=== PATIENT | female | born 1975 | race Hispanic/Latino ===

== ENCOUNTER 2017-10-20 11:32 | Emergency (ER) | payer BC, SELFPAY ==
[2017-10-20] MEDS ORDERED: ISOVUE-370 76%-LOCM 1 ML ONE (12:13)
[2017-10-20 12:17] LABS: #Eosinphils 0.2 thou/uL (0.0-0.7); #Lymphocytes 2.5 thou/uL (1.20-3.40); #Monocytes 0.3 thou/uL (0.11-0.59); %Basophils 0.7 % (0.0-1.0); %Eosinophils 3.1 % (0.0-10.0); %Lymphocytes 41.9 % (21.0-51.0); %Monocytes 4.8 % (0.0-10.0); %Neutrophils 49.5 % (42.0-75.0); Mean Corpuscular HGB CONC 31.6 g/dL (32.0-36.0); Mean Corpuscular Volume 88.5 fL (78.0-98.0); Mean Platelet Volume 7.4 fL (7.4-10.4); Platelet Count 298 thou/uL (130-400); RBC Distribution Width 12.4 % (11.5-14.5); Red Blood Cell (RBC) Count 5.01 mill/uL (4.20-5.40)
[2017-10-20 12:30] LABS: BHCG - Serum Negative (NEGATIVE); Pregs Control Background? CLEAR/WHITE (CLR/WHITE); Pregs Control Bar Appear? YES (CONTROL BAR)
[2017-10-20 12:31] LABS: ALT (SGPT) 27 U/L (8-55); AST (SGOT) 25 U/L (5-34); Albumin 4.7 g/dL (3.5-5.0); Alkaline Phosphatase 81 U/L (40-150); Anion Gap 9 mmol/L (10-20); BUN (Urea Nitrogen) 14 mg/dL (7.0-18.7); Bilirubin, Total 0.9 mg/dL (0.2-1.2); Calc. Creatinine Clearance 0 mL/min (70-130); Calcium 9.8 mg/dL (7.8-10.44); Carbon Dioxide 30 mmol/L (22-29); Chloride 103 mmol/L (98-107); Estimated GFR-MDRD Greater than 90; Globulin 3.4 g/dL (2.4-3.5); Glucose 96 mg/dL (70-105); Potassium 4.1 mmol/L (3.5-5.1); Protein, Total 8.1 g/dL (6.0-8.3); Sodium 138 mmol/L (136-145)
--- NOTE | 2017-10-20 13:29 | CT ---
POSTCONTRAST SOFT TISSUE NECK CT: HISTORY: Neck pain. Swelling. COMPARISON: None. TECHNIQUE: Post contrast soft tissue neck CT is performed in the axial plane. Sagittal and coronal reformatted images are submitted for interpretation. FINDINGS: Visualized brain parenchyma and orbits are unremarkable. Adequate aeration of the visualized sinuses and mastoid air cells. Aerodigestive tract is patent. No mucosal abnormality. Midline fatty raphae of the tongue is preser declan. There is no prevertebral soft tissue swelling. There is fullness of both palatine tonsils, nonspecific. The adenoid tonsils do not appear to be enl arged. There may be mild lingual tonsillar hypertrophy. Evaluation of the oral cavity is also limit ed by motion degradation. Symmetric attenuation of the parotid and submandibular glands. Appropriate attenuation of thyroid gl and. Symmetric attenuation of sternocleidomastoid muscles. Enlarged right level II lymph node measures 0.8 x 1.2 cm. Enlarged left level II lymph node measurin g 1.1 x 0.9 cm. There is also an enlarged left level II lymph node measuring 1.1 x 0.9 cm. Some of the enlarged lymph nodes have lost their normal fatty hilum. Additional large bilateral level II lym ph nodes are noted. Upper mediastinum and lung apices are unremarkable. There are varying degrees of central canal stenosis and neural foraminal narrowing on the basis of de generative change. Evaluation is limited by technique. Cervical spine vertebral body height is main tained. There is no fracture. IMPRESSION: Lymphoid tissue hypertrophy/adenopathy as detailed above. Findings may be reactive. Neoplastic proc esses, either metastatic or primary cannot be excluded. Correlate clinically. POS: [facility]
== END 2017-10-20 13:31 | disposition home or self-care (01) ==
LOC: ERS 11:32
DX: R59.0 Localized enlarged lymph nodes (principal)
CPT/HCPCS: 70491; 80053; 84703; 85025

== ENCOUNTER 2017-12-17 23:00 | Emergency (ER) | payer SELFPAY ==
[2017-12-17 23:32] LABS: #Basophils 0.1 thou/uL (0.0-0.2); #Eosinphils 0.3 thou/uL (0.0-0.7); #Lymphocytes 3.2 thou/uL (1.20-3.40); #Monocytes 0.6 thou/uL (0.11-0.59); #Neutrophils 11.3 thou/uL (1.40-6.50); %Basophils 0.5 % (0.0-1.0); %Eosinophils 2.1 % (0.0-10.0); %Lymphocytes 20.8 % (21.0-51.0); %Monocytes 3.8 % (0.0-10.0); %Neutrophils 72.8 % (42.0-75.0); Hemoglobin 13.7 g/dL (12.0-16.0); Mean Corpuscular HGB CONC 33.7 g/dL (32.0-36.0); Mean Corpuscular Hemoglobin 30.1 pg (27.0-31.0); Mean Corpuscular Volume 89.2 fL (78.0-98.0); Platelet Count 350 thou/uL (130-400); RBC Distribution Width 12.8 % (11.5-14.5); Red Blood Cell (RBC) Count 4.54 mill/uL (4.20-5.40); White Blood Cell (WBC) Count 15.6 thou/uL (4.8-10.8)
[2017-12-17] MEDS ORDERED: Acetaminophen 500 MG TAB ONE (23:33)
[2017-12-17 23:43] LABS: Bilirubin Negative (Negative); Blood, Urine Negative (Negative); Clarity CLEAR (Clear); Glucose, Urine (Dipstick) Negative (Negative); Leukocyte Negative (Negative); Nitrite Negative (Negative); Protein, Urine (Dipstick) Negative (Neg-Trace); Specific Gravity, Urine 1.011 (1.002-1.036); Urobilinogen 0.2 mg/dL (0.2-1.0); pH, Urine 6.5 (5.0-9.0)
[2017-12-17 23:49] LABS: Pregnancy Test - Urine (BHCG) Negative (Negative); Pregu Control Background? CLEAR/WHITE (CLR/WHITE); Pregu Control Bar Appear? YES (CONTROL BAR); Specific Gravity 1.011 (1.002-1.036)
[2017-12-17 23:53] LABS: ALT (SGPT) 68 U/L (8-55); AST (SGOT) 56 U/L (5-34); Albumin 4.3 g/dL (3.5-5.0); Alkaline Phosphatase 93 U/L (40-150); Anion Gap 15 mmol/L (10-20); BUN (Urea Nitrogen) 12 mg/dL (7.0-18.7); Bilirubin, Total 0.7 mg/dL (0.2-1.2); Calc. Creatinine Clearance 0 mL/min (70-130); Calcium 9.6 mg/dL (7.8-10.44); Carbon Dioxide 22 mmol/L (22-29); Chloride 102 mmol/L (98-107); Estimated GFR-MDRD Greater than 90; Globulin 3.1 g/dL (2.4-3.5); Glucose 112 mg/dL (70-105); Lipase 27 U/L (8-78); Potassium 4.5 mmol/L (3.5-5.1); Protein, Total 7.4 g/dL (6.0-8.3); Sodium 134 mmol/L (136-145)
[2017-12-18] MEDS ORDERED: Ondansetron HCl/PF 4 MG/2 ML Vial ONE (00:15)
--- NOTE | 2017-12-18 09:12 | RAD ---
PORTABLE CHEST: HISTORY: Cough. FINDINGS: Heart size and mediastinum are within normal limits. The lungs are clear of infiltrates. No bony fi ndings. IMPRESSION: No active intrathoracic disease. POS: [facility]
== END 2017-12-18 01:10 | disposition home or self-care (01) ==
LOC: ERS 23:00
DX: J06.9 Acute upper respiratory infection, unspecified (principal)
CPT/HCPCS: 71045; 80053; 81003; 81025; 83605; 83690; 85025; 96374; J2405

== ENCOUNTER 2019-02-22 10:30 | Outpatient (CLI) | payer OTHER ==
--- NOTE | 2019-02-22 12:23 | RAD ---
CHEST 2 VIEWS: Date: 02/22/19 HISTORY: TB screening. COMPARISON: 12/18/17. FINDINGS: Heart size is normal. The lungs are clear. IMPRESSION: No acute intrathoracic disease. Stable from prior study. No evidence for active TB. POS: [facility]
== END 2019-02-22 10:31 | disposition home or self-care (01) ==
LOC: BICRAD 10:30
PROVIDERS: ATTEND Family Medicine
DX: Z11.1 Encounter for screening for respiratory tuberculosis (principal)
CPT/HCPCS: 71046

== ENCOUNTER 2020-04-01 15:48 | Outpatient (CLI) | payer OTHER ==
--- NOTE | 2020-04-01 16:02 | RAD ---
EXAM: Two views chest PROVIDED CLINICAL HISTORY: Positive TB test. COMPARISON: 02/22/2019 FINDINGS: Cardiac silhouette and pulmonary vasculature are within normal limits. The lungs are clear. The osse ous structures have a normal appearance. Surgical clips again overlie the right upper quadrant. IMPRESSION: No acute cardiopulmonary process.
== END 2020-04-01 15:49 | disposition home or self-care (01) ==
LOC: BICRAD 15:48
PROVIDERS: ATTEND Physician Assistant
DX: R76.11 Nonspecific reaction to tuberculin skin test without active tuberculosis (principal)
CPT/HCPCS: 71046

== ENCOUNTER 2021-11-24 01:37 | Emergency (ER) | payer SELFPAY ==
[2021-11-24] MEDS ORDERED: Ibuprofen 200 MG TAB ONE (02:05)
[2021-11-24 02:12] LABS: Bacteria/HPF None Seen HPF (None Seen); Bilirubin Negative (Negative); Blood, Urine 3+ (Negative); Clarity Extra Turbid (Clear); Glucose, Urine (Dipstick) Normal (Negative); Ketone, Urine Negative (Negative); Leukocyte 500 Leu/uL (Negative); Nitrite Negative (Negative); Protein, Urine (Dipstick) 200 mg/dL (Neg-Trace); RBC/HPF Greater than 50 HPF (0-3); Specific Gravity, Urine 1.018 (1.002-1.036); Squamous Epithelial None Seen HPF (0-3); Urobilinogen Normal mg/dL (Less than 2); WBC/HPF Greater than 50 HPF (0-3)
[2021-11-24] MEDS ORDERED: Ondansetron ODT 4 MG TAB ONE (02:27)
== END 2021-11-24 02:45 | disposition home or self-care (01) ==
LOC: ERS 01:37
DX: N39.0 Urinary tract infection, site not specified (principal); R31.9 Hematuria, unspecified
CPT/HCPCS: 81003; 81015; 87077; 87086; 87186; 99283; Q0162